=== PATIENT | male | born 1955 | race Caucasian/White ===

== ENCOUNTER 2021-06-25 12:26 | Emergency (ER) | payer MEDICARE, OTHER ==
[~2021-06-25] VITALS: Ht 180.3 cm; Wt 76.2 kg
[~2021-06-25 12:26] MED LIST: FAMO20 PO
[2021-06-25] MEDS ORDERED: TRAZ50 PO (13:54)
[2021-06-25] MEDS ORDERED: MELATONIN5 M1 PO (13:54)
== END 2021-06-25 14:10 | disposition home or self-care (01) ==
LOC: ER 12:26
DX: G47.00 Insomnia, unspecified (principal); F12.90 Cannabis use, unspecified, uncomplicated; Z72.0 Tobacco use; Z79.899 Other long term (current) drug therapy
CPT/HCPCS: 99282